=== PATIENT | male | born 1990 ===

== ENCOUNTER 2022-09-10 10:11 | Emergency (ER) | payer SELFPAY ==
[2022-09-10] MEDS ORDERED: Sodium Chloride 0.9% 10 ML Syringe FLUSH PRN (10:31)
== END 2022-09-10 13:03 | disposition home or self-care (01) ==
LOC: JD.ED 10:11
DX: R07.89 Other chest pain (principal); F17.210 Nicotine dependence, cigarettes, uncomplicated
CPT/HCPCS: 36415; 71045; 71045-26; 80053; 83735; 84484; 85025; 85379; 85610; 86140; 93005; 93010; 99283; 99285; J3490